=== PATIENT | female | born 1965 | race Caucasian/White ===

== ENCOUNTER 2022-06-17 00:37 | Emergency (ER) | payer MEDICARE ==
[2022-06-17 00:54] VITALS: BP 161/96; PULSE 67; RESP 18; TEMP 98.1
[2022-06-17] MEDS ORDERED: LIDOCAINE 1%-EPI 1:100,000 20 ML VIAL SQ STA (01:05)
--- NOTE | 2022-06-17 01:36 | ED ---
General Adult HPI - General Chief complaint: Head Injury Stated complaint: Fall, head injury Time Seen by Provider: 06/17/22 00:44 Source: patient Mode of arrival: ambulatory Limitations: no limitations - History of Present Illness Initial comments: Dictation was produced using [email or web address] dictation software. please excuse any grammatical, word or spelling errors. Chief Complaint: 56-year-old female presents with head injury and scalp laceration History of Present Illness: Patient is a 56-year-old female she has no significant comorbidities. She is visiting here from [facility] for a camping trip. Patient fell backwards after tripping. She struck the back of her head posterior was some bleeding. Patient is not taking any coagulation medications. No loss of consciousness. The ROS documented in this emergency department record has been reviewed and confirmed by me. Those systems with pertinent positive or negative responses have been documented in the HPI. All other systems are other negative and/or noncontributory. PHYSICAL EXAM: General Impression: Alert and oriented x3, not in acute distress HEENT: 1 cm laceration over the occiput, extra-ocular movements intact, pupils equal and reactive to light bilaterally, mucous membranes moist. Cardiovascular: Heart regular rate and rhythm Chest: Able to complete full sentences, no retractions, no tachypnea Abdomen: abdomen soft, non-tender, non-distended, no organomegaly Musculoskeletal: Pulses present and equal in all extremities, no peripheral edema Motor: no focal deficits noted Neurological: CN II-XII grossly intact, no focal motor or sensory deficits noted Skin: Intact with no visualized rashes Psych: Normal affect and mood ED course: 56-year-old female presents to the emergency Department with a head injury and scalp laceration after trip and fall. Vital signs upon arrival are within acceptable limits. Computed tomography scan of the brain is unremarkable. Lacerations repaired at bedside using liam. please see laceration repair note for further detail. Patient observed in emergency department for approximately one hour and 10 minutes. Reevaluated at bedside at 1:50 AM pelvic stable medical condition. Patient will be discharged. Patient instructed that [place] should be removed in 5-7 days. - Related Data Allergies Allergy/AdvReac Type Severity Reaction Status Date / Time bee venom protein (honey bee) Allergy Swelling Verified 06/17/22 00:54 Review of Systems ROS Statement: Those systems with pertinent positive or pertinent negative responses have been documented in the HPI. ROS Other: All systems not noted in ROS Statement are negative. Past Medical History Additional Past Medical History / Comment(s): Raynauds, scleraderma History of Any Multi-Drug Resistant Organisms: None Reported Past Surgical History: No Surgical Hx Reported Past Psychological History: No Psychological Hx Reported Smoking Status: Never smoker Past Alcohol Use History: Occasional Past Drug Use History: None Reported General Exam Limitations: no limitations Course Vital Signs 06/17/22 00:51 Temperature 98.1 F Pulse Rate 67 Respiratory 18 Rate Blood Pressure 161/96 O2 Sat by Pulse 93 L Oximetry Procedures - Laceration Laceration #1 Consent Obtained: verbal consent Indication: laceration Site: scalp Size (cm): 1 Description: linear Depth: simple, single layer Anesthetic Used: lidocaine 1%, with epi Anesthesia Technique: local infiltration Type of Sutures: other (liam) Number of Sutures: 2 Patient Tolerated Procedure: well Disposition Clinical Impression: Scalp laceration Disposition: HOME SELF-CARE Condition: Good Instructions (If sedation given, give patient instructions): Laceration (ED) Additional Instructions: staple removal in 5-7 days Is patient prescribed a controlled substance at d/c from ED?: No Referrals: Nonstaff,Physician [Primary Care Provider] - 1-2 days Time of Disposition: 01:47
--- NOTE | 2022-06-17 01:41 | CT ---
EXAMINATION TYPE: CT brain wo con DATE OF EXAM: 06/17/2022 COMPARISON: None HISTORY: fall, head injury-LAC TO POSTERIOR HEAD, no LOC CT DLP: 1099.6 mGycm Automated exposure control for dose reduction was used. Images obtained of the brain with no contrast. Ventricles and sulci appear normal. There is no mass effect or midline shift. No sign of intracranial hemorrhage. Calvarium is intact. IMPRESSION: Negative unenhanced head CT scan.
--- NOTE | 2022-06-19 03:28 | ED ---
Disposition Clinical Impression: Scalp laceration Disposition: HOME SELF-CARE Condition: Good Instructions (If sedation given, give patient instructions): Laceration (ED) Additional Instructions: staple removal in 5-7 days Prescriptions: HYDROcodone/APAP 5-325MG [[place] 5-325] 1 tab PO Q6HR PRN 3 Days #12 tab PRN Reason: Severe Pain Is patient prescribed a controlled substance at d/c from ED?: Yes If prescribed controlled substance>3 days was MAPS reviewed?: Prescribed <3 Days Referrals: Nonstaff,Physician [Primary Care Provider] - 1-2 days
== END 2022-06-17 02:18 | disposition home or self-care (01) ==
LOC: EC 00:37
DX: S01.01XA Laceration without foreign body of scalp, initial encounter (principal); Z91.030 Bee allergy status; W01.0XXA Fall on same level from slipping, tripping and stumbling without subsequent striking against object, initial encounter
CPT/HCPCS: 12001; 70450; 99283